=== PATIENT | female | born 1995 | race African-American/Black ===

== ENCOUNTER 2020-04-23 12:51 | Emergency (ER) | payer MEDICAID ==
[~2020-04-23] VITALS: Ht 162.6 cm; Wt 81.1 kg
--- NOTE | 2020-04-23 13:45 | NUR ---
PT AMBULATORY TO ROOM 12 W/ C/O LOPEZ X 1 MONTH. PT STATES LOPEZ STARTED 1 MONTH AGO INTERMITTENTLY AND IS NOW CONSTANT AND AT TIMES THROBS. PT IS ALSO 13 WEEKS W/ NO ISSUES TO . PT DENIES VB, YURIY MAI. PT RESTING ON [employer]. NADN. VSS. MONITORS APPLIED. WARM BLANKET PROVIDED.
[2020-04-23] MEDS ORDERED: METOCLOPRAMIDE 5 MG/ML, 2ML ONE (14:08)
[2020-04-23] MEDS ORDERED: DIPHENHYDRAMINE 50 MG/ML, 1ML ONE (14:08)
[2020-04-23] MEDS ORDERED: DIPHENHYDRAMINE 50 MG/ML, 1ML IVPush ONE (14:30)
[2020-04-23] MEDS ORDERED: METOCLOPRAMIDE 5 MG/ML, 2ML IVPush ONE (14:30)
[2020-04-23] MEDS ORDERED: SODIUM CHLORIDE 0.9% 1,000ML IVBOLUS ONE (14:30)
--- NOTE | 2020-04-23 14:33 | NUR ---
PT MEDICATED PER MAR. LUNSFORD. VSS. PT CURRENTLY SLEEPING.
[2020-04-23 14:40] LABS: BASOPHILS % (AUTO) 1 % (0-1); EOSINOPHILS % (AUTO) 1 % (1-7); LYMPHOCYTES % (AUTO) 18 % (22-44); MEAN CORPUSCULAR HEMOGLOBIN 26.6 pg (27.0-34.8); MEAN CORPUSCULAR HGB CONC 33.1 g/dL (32.4-35.8); MEAN PLATELET VOLUME 8.8 fL (7.4-10.4); MONOCYTES % (AUTO) 7 % (2-9); NEUTROPHILS % (AUTO) 74 % (42-75); PLATELET COUNT 344 x10^3/uL (130-400); RED BLOOD COUNT 4.34 x10^6/uL (3.82-5.3); RED CELL DISTRIBUTION WIDTH 13.9 % (9.6-15.2)
[2020-04-23 14:41] LABS: MICROSCOPIC INDICATED
[2020-04-23 14:42] LABS: MD NO
[2020-04-23 14:46] LABS: ALANINE AMINOTRANSFERASE 20 U/L (12-78); ALBUMIN 3.1 g/dL (3.4-5.0); ANION GAP 10 mmol/L (5-15); CALCIUM 8.7 mg/dL (8.5-10.1); CHLORIDE 108 mmol/L (98-107); CREATININE 0.71 mg/dL (0.55-1.02)
[2020-04-23 14:48] LABS: ALKALINE PHOSPHATASE 57 U/L (45-117); BILIRUBIN,TOTAL 0.2 mg/dL (0.2-1.0); TOTAL PROTEIN 6.6 g/dL (6.4-8.2)
--- NOTE | 2020-04-23 15:03 | NUR ---
BREAK RN- ERMD AT BEDSIDE TO DISCUSS POC
--- NOTE | 2020-04-23 15:13 | NUR ---
steady ambulation to bathroom, pt back resting in bed
[2020-04-23 15:34] VITALS: BP 108/53
== END 2020-04-23 15:36 | disposition home or self-care (01) ==
LOC: ED 15:15
DX: O26.891 Other specified pregnancy related conditions, first trimester (principal); G44.219 Episodic tension-type headache, not intractable; Z3A.13 13 weeks gestation of pregnancy
CPT/HCPCS: 36415; 80053; 81001; 85025; 87086; 96361; 96374; 96375; 99284; J1200; J2765; J7030

== ENCOUNTER 2020-08-22 17:52 | Outpatient (CLI) | payer MEDICAID ==
[~2020-08-22] VITALS: Ht 162.6 cm; Wt 90.9 kg
[2020-08-22 18:01] VITALS: BP 118/66
[2020-08-22] MEDS ORDERED: BUTALB/APAP/CAFFEINE 50MG/325MG/40MG ONE (18:27)
[2020-08-22] MEDS ORDERED: BUTALB/APAP/CAFFEINE 50MG/325MG/40MG PO ONE (18:30)
[2020-08-22 18:46] LABS: MICROSCOPIC INDICATED
[2020-08-22 19:36] LABS: BASOPHILS % (AUTO) 1 % (0-1); EOSINOPHILS % (AUTO) 1 % (1-7); LYMPHOCYTES % (AUTO) 17 % (22-44); MEAN CORPUSCULAR HEMOGLOBIN 27.3 pg (27.0-34.8); MEAN CORPUSCULAR HGB CONC 33.4 g/dL (32.4-35.8); MEAN PLATELET VOLUME 9.1 fL (7.4-10.4); MONOCYTES % (AUTO) 6 % (2-9); NEUTROPHILS % (AUTO) 76 % (42-75); PLATELET COUNT 285 x10^3/uL (130-400); RED BLOOD COUNT 4.16 x10^6/uL (3.82-5.3); RED CELL DISTRIBUTION WIDTH 13.8 % (9.6-15.2)
[2020-08-22 19:50] LABS: ALANINE AMINOTRANSFERASE 16 U/L (12-78); ANION GAP 5 mmol/L (5-15); CALCIUM 8.6 mg/dL (8.5-10.1); CHLORIDE 106 mmol/L (98-107); CREATININE 0.63 mg/dL (0.55-1.02)
[2020-08-22 19:50] LABS: CREATININE,URINE RANDOM 48.5 mg/dL
[2020-08-22 19:52] LABS: ALKALINE PHOSPHATASE 79 U/L (45-117); BILIRUBIN, DIRECT < 0.1 mg/dL (0.1-0.2); BILIRUBIN,TOTAL 0.2 mg/dL (0.2-1.0)
[2020-08-22 20:09] LABS: MD SCAN
== END 2020-08-22 20:18 | disposition home or self-care (01) ==
LOC: LDOP 17:52
PROVIDERS: ATTEND Student in an Organized Health Care Education/Training Program
DX: O99.355 Diseases of the nervous system complicating the puerperium (principal); R42 Dizziness and giddiness; O26.893 Other specified pregnancy related conditions, third trimester; Z3A.30 30 weeks gestation of pregnancy
CPT/HCPCS: 36415; 59025; 80053; 81001; 82248; 82570; 84156; 84550; 85025; 87086

== ENCOUNTER 2020-09-09 15:30 | Outpatient (CLI) | payer MEDICAID ==
[~2020-09-09] VITALS: Ht 162.6 cm; Wt 91.8 kg
[2020-09-09 15:39] VITALS: BP 109/61
== END 2020-09-09 17:00 | disposition home or self-care (01) ==
LOC: LDOP 15:30
PROVIDERS: ATTEND Student in an Organized Health Care Education/Training Program
DX: O42.913 Preterm premature rupture of membranes, unspecified as to length of time between rupture and onset of labor, third trimester (principal); O26.893 Other specified pregnancy related conditions, third trimester; R10.9 Unspecified abdominal pain; Z3A.32 32 weeks gestation of pregnancy
CPT/HCPCS: 59025; 89060; Q0114

== ENCOUNTER 2020-10-01 12:36 | Outpatient (CLI) | payer MEDICAID ==
[~2020-10-01] VITALS: Ht 162.6 cm; Wt 93.2 kg
[2020-10-01 13:01] LABS: MICROSCOPIC INDICATED
== END 2020-10-01 15:16 | disposition home or self-care (01) ==
LOC: LDOP 12:36
PROVIDERS: ATTEND Student in an Organized Health Care Education/Training Program
DX: O26.893 Other specified pregnancy related conditions, third trimester (principal); R10.9 Unspecified abdominal pain; Z3A.35 35 weeks gestation of pregnancy
CPT/HCPCS: 59025; 81001; 82570; 84156; 87086

== ENCOUNTER 2020-10-16 07:21 | Outpatient (CLI) | payer MEDICAID ==
[~2020-10-16] VITALS: Ht 162.6 cm; Wt 95.0 kg
== END 2020-10-16 09:09 | disposition home or self-care (01) ==
LOC: LDOP 07:21
PROVIDERS: ATTEND Student in an Organized Health Care Education/Training Program
DX: O26.893 Other specified pregnancy related conditions, third trimester (principal); R10.9 Unspecified abdominal pain; Z3A.38 38 weeks gestation of pregnancy
CPT/HCPCS: 59025

== ENCOUNTER 2020-10-23 03:03 | Inpatient (IN) | payer MEDICAID ==
[~2020-10-23] VITALS: Ht 162.6 cm; Wt 95.0 kg
[2020-10-23] MEDS ORDERED: OXYTOCIN 30U/ 0.9% NaCL 500ML 500 ML ONE (03:10)
[2020-10-23] MEDS ORDERED: MISOPROSTOL 200 MCG TABLET ONE (03:11)
[2020-10-23] MEDS ORDERED: LIDOCAINE 1%, 20ML ONE (03:11)
[2020-10-23] MEDS ORDERED: NEWBORN KIT ONE (03:19)
[2020-10-23 03:20] VITALS: BP 154/73
[2020-10-23] MEDS ORDERED: FENTANYL PF 100 MCG/2ML ONE (03:21)
[2020-10-23] MEDS ORDERED: CALCIUM CARBONATE 500 MG TAB.CHEW PO PRN (03:30)
[2020-10-23] MEDS ORDERED: TERBUTALINE 1 MG/ML, 1ML IVPush PRN (03:30)
[2020-10-23] MEDS ORDERED: FENTANYL PF 100 MCG/2ML IV PRN (03:30)
[2020-10-23] MEDS ORDERED: OXYTOCIN 30U/ 0.9% NaCL 500ML 500 ML IV ONE (03:30)
[2020-10-23] MEDS ORDERED: ONDANSETRON 2MG/ML, 2ML IVPush PRN (03:30)
[2020-10-23] MEDS ORDERED: TERBUTALINE 1 MG/ML, 1ML SQ PRN (03:30)
[2020-10-23] MEDS ORDERED: PENICILLIN GK 5,000,000 UNITS in DEXTROSE 5% 100 ML IVPB ONE (03:30)
[2020-10-23] MEDS ORDERED: FENTANYL PF 100 MCG/2ML IVPush PRN (03:30)
[2020-10-23] MEDS ORDERED: LACTATED RINGERS 1,000 ML IV SCH (03:30)
[2020-10-23 03:42] LABS: BASOPHILS % (AUTO) 1 % (0-1); EOSINOPHILS % (AUTO) 1 % (1-7); LYMPHOCYTES % (AUTO) 32 % (22-44); MEAN CORPUSCULAR HEMOGLOBIN 26.3 pg (27.0-34.8); MEAN CORPUSCULAR HGB CONC 33.1 g/dL (32.4-35.8); MEAN PLATELET VOLUME 9.7 fL (7.4-10.4); MONOCYTES % (AUTO) 9 % (2-9); NEUTROPHILS % (AUTO) 58 % (42-75); PLATELET COUNT 272 x10^3/uL (130-400); RED BLOOD COUNT 4.26 x10^6/uL (3.82-5.3); RED CELL DISTRIBUTION WIDTH 13.9 % (9.6-15.2)
[2020-10-23] MEDS ORDERED: PLEASE ENTER HEIGHT AND WEIGHT MC SCH (04:00)
[2020-10-23] MEDS ORDERED: IBUPROFEN 600 MG TABLET ONE (04:25)
[2020-10-23] MEDS ORDERED: OXYcodone/APAP 5/325MG TABLET ONE (04:25)
[2020-10-23] MEDS ORDERED: BISACODYL 10 MG SUPP PR PRN (04:30)
[2020-10-23] MEDS: OXYTOCIN 30U/ 0.9% NaCL 500ML 500 ML IV SCH ×2 (04:30→14:30)
[2020-10-23] MEDS ORDERED: RHOGAM FROM BLOOD BANK 1 NOTE EA IM/IV ONE (04:30)
[2020-10-23] MEDS ORDERED: MISOPROSTOL 200 MCG TABLET PR PRN (04:30)
[2020-10-23] MEDS ORDERED: ACETAMINOPHEN 325 MG TABLET PO PRN (04:30)
[2020-10-23] MEDS ORDERED: HYDROcodone/APAP 5/325 TABLET PO PRN (04:30)
[2020-10-23] MEDS ORDERED: IBUPROFEN 800 MG TABLET PO PRN (04:30)
[2020-10-23] MEDS: OXYcodone/APAP 5/325MG TABLET PO PRN ×5 (04:30→20:03)
[2020-10-23] MEDS ORDERED: ONDANSETRON 2MG/ML, 2ML IV PRN (04:30)
[2020-10-23 06:03] VITALS: BP 132/76
[2020-10-23] MEDS ORDERED: PENICILLIN GK 2,500,000 UNITS in DEXTROSE 5% 100 ML IVPB SCH (07:30)
[2020-10-23 08:20] VITALS: BP 123/68
[2020-10-23] MEDS ORDERED: IBUPROFEN 200 MG TABLET ONE (08:22)
[2020-10-23] MEDS: PRENATAL VIT/IRON/FA 1 EACH TABLET PO SCH (08:25)
[2020-10-23] MEDS: IBUPROFEN 600 MG TABLET PO PRN ×2 (08:25→15:03)
[2020-10-23] MEDS: DOCUSATE 100 MG CAPSULE PO PRN ×2 (08:25→20:02)
[2020-10-23 12:10] VITALS: BP 129/72
[2020-10-23 12:27] LABS: BASOPHILS % (AUTO) 0 % (0-1); EOSINOPHILS % (AUTO) 0 % (1-7); LYMPHOCYTES % (AUTO) 13 % (22-44); MEAN CORPUSCULAR HEMOGLOBIN 26.5 pg (27.0-34.8); MEAN CORPUSCULAR HGB CONC 32.9 g/dL (32.4-35.8); MEAN PLATELET VOLUME 9.6 fL (7.4-10.4); MONOCYTES % (AUTO) 8 % (2-9); NEUTROPHILS % (AUTO) 78 % (42-75); PLATELET COUNT 268 x10^3/uL (130-400); RED BLOOD COUNT 4.01 x10^6/uL (3.82-5.3); RED CELL DISTRIBUTION WIDTH 14.4 % (9.6-15.2)
[2020-10-23 16:46] VITALS: BP 121/95
[2020-10-23 20:00] VITALS: BP 121/72
[2020-10-24] VITALS: BP 125/68
[2020-10-24] MEDS: OXYTOCIN 30U/ 0.9% NaCL 500ML 500 ML IV SCH ×3 (00:30→20:30)
[2020-10-24] MEDS: IBUPROFEN 600 MG TABLET PO PRN ×3 (00:51→22:43)
[2020-10-24] MEDS: OXYcodone/APAP 5/325MG TABLET PO PRN ×6 (00:52→20:10)
[2020-10-24 07:40] VITALS: BP 109/68
[2020-10-24] MEDS: DOCUSATE 100 MG CAPSULE PO PRN ×2 (09:07→20:09)
[2020-10-24] MEDS: PRENATAL VIT/IRON/FA 1 EACH TABLET PO SCH (09:07)
[2020-10-24 19:10] VITALS: BP 139/83
[2020-10-24 20:05] VITALS: BP 133/83
[2020-10-25] MEDS: IBUPROFEN 600 MG TABLET PO PRN (05:05)
[2020-10-25] MEDS: OXYcodone/APAP 5/325MG TABLET PO PRN ×2 (05:05→09:18)
[2020-10-25] MEDS: OXYTOCIN 30U/ 0.9% NaCL 500ML 500 ML IV SCH (06:30)
[2020-10-25 08:20] VITALS: BP 104/64
[2020-10-25] MEDS ORDERED: DOCU-131 PO (08:31)
[2020-10-25] MEDS ORDERED: IBUP-1222 PO (08:31)
== END 2020-10-25 12:24 | disposition home or self-care (01) | DRG 807 ==
LOC: LDOP 03:03 → LDIP 03:15 → 2NW 05:46
PROVIDERS: ADMIT Student in an Organized Health Care Education/Training Program; ATTEND Student in an Organized Health Care Education/Training Program
PROC: 10E0XZZ Delivery of Products of Conception, External Approach (ICD-10-PCS; principal; 2020-10-23)
DX: O99.824 Streptococcus B carrier state complicating childbirth (principal); Z37.0 Single live birth; Z3A.39 39 weeks gestation of pregnancy; Z20.822 Contact with and (suspected) exposure to COVID-19
CPT/HCPCS: 36415; 85025; 86592; 86850; 86900; 87635; G0378; J2540; J3010; J2590; J7120

== ENCOUNTER 2020-10-26 08:18 | Emergency (ER) | payer MEDICAID ==
[~2020-10-26 08:18] MED LIST: DOCU-131 PO; IBUP-1222 PO
--- NOTE | 2020-10-26 09:15 | NUR ---
PT AMBULATORY TO ROOM FROM [facility], CHANGED INTO GOWN, MONITORS IN PLACE. CALL LIGHT WITHIN REACH. BABY AND AT BS. PT C/O LOPEZ, SWOLLEN LEGS, HIGH BP
[2020-10-26 09:49] LABS: BASOPHILS % (AUTO) 1 % (0-1); EOSINOPHILS % (AUTO) 1 % (1-7); LYMPHOCYTES % (AUTO) 19 % (22-44); MEAN CORPUSCULAR HEMOGLOBIN 26.5 pg (27.0-34.8); MEAN CORPUSCULAR HGB CONC 33.1 g/dL (32.4-35.8); MEAN PLATELET VOLUME 9.1 fL (7.4-10.4); MONOCYTES % (AUTO) 7 % (2-9); NEUTROPHILS % (AUTO) 72 % (42-75); PLATELET COUNT 270 x10^3/uL (130-400); RED BLOOD COUNT 3.94 x10^6/uL (3.82-5.3); RED CELL DISTRIBUTION WIDTH 14.5 % (9.6-15.2)
[2020-10-26 10:03] LABS: ALKALINE PHOSPHATASE 125 U/L (45-117); BILIRUBIN,TOTAL 0.2 mg/dL (0.2-1.0); TOTAL PROTEIN 6.5 g/dL (6.4-8.2)
[2020-10-26 10:05] LABS: MICROSCOPIC AUTO
[2020-10-26 10:09] LABS: ANION GAP 7 mmol/L (5-15); CHLORIDE 107 mmol/L (98-107)
[2020-10-26 10:18] LABS: ALANINE AMINOTRANSFERASE 64 U/L (12-78); ALBUMIN 2.6 g/dL (3.4-5.0); CALCIUM 8.6 mg/dL (8.5-10.1); CREATININE 0.94 mg/dL (0.55-1.02)
--- NOTE | 2020-10-26 11:12 | NUR ---
TASK RN: US AT BEDSIDE.
[2020-10-26 11:38] VITALS: BP 127/80
--- NOTE | 2020-10-26 12:42 | NUR ---
Patient given discharge instructions and they have confirmed that they understand the instructions. Patient ambulatory with steady gait.
== END 2020-10-26 12:51 | disposition home or self-care (01) ==
LOC: ED 09:33
DX: R60.0 Localized edema (principal)
CPT/HCPCS: 36415; 80053; 81001; 83880; 84550; 85025; 93005; 93970; 99285